=== PATIENT | female | born 1975 | race Caucasian/White ===

== ENCOUNTER 2018-01-02 16:41 | Emergency (ER) | payer OTHER ==
[~2018-01-02] VITALS: Ht 149.9 cm; Wt 71.2 kg
[2018-01-02 17:45] LABS: APPEARANCE,URINE CLOUDY (CLEAR); BILIRUBIN,URINE NEGATIVE (NEGATIVE); BLOOD, URINE 3+ Ery/uL (NEGATIVE); COLOR,URINE BROWN (YELLOW); KETONES,URINE NEGATIVE (NEGATIVE); LEUKOCYTE ESTERASE ,URINE 2+ (NEGATIVE); NITRITE, URINE NEGATIVE (NEGATIVE); PH,URINE 5.5 (5.0-8.0); PROTEIN,URINE 1+ mg/dl (NEGATIVE); UGLUCOSE NEGATIVE (NEGATIVE); UROBILINOGEN,URINE 0.2 EU/dL (0.2)
--- NOTE | 2018-01-02 17:45 | NUR ---
PATIENT TO ED DT PAIN ON URINATION AND INCREASED FREQUENCY SINCE 0800, BLOOD IN URINE X3 DAYS. PATIENT IS AWAKE ALERT. AFEBRILE. NO NAUSEA NOR VOMITTING.
[2018-01-02 17:54] LABS: BACTERIA,URINE Few /HPF (None Seen); RBC,URINE TOO NUMEROUS TO COUN /HPF (0-2); SQUAMOUS EPITHELIAL CELL,UR Few /HPF (None Seen); WBC,URINE TOO NUMEROUS TO COUN /HPF (0-3)
--- NOTE | 2018-01-02 18:16 | NUR ---
PT. VERBALIZED UNDERSTANDING OF AFTERCARE INSTRUCTIONS.Patient discharged to home in stable condition. Written and verbal after care instructions given. Patient verbalizes understanding of instruction.
[2018-01-02 18:18] VITALS: BP 113/82
== END 2018-01-02 18:19 | disposition home or self-care (01) ==
LOC: ER 16:48
DX: N39.0 Urinary tract infection, site not specified (principal); Z60.2 Problems related to living alone
CPT/HCPCS: 81001; 87077; 87086; 87186; 99284; A4606; Z7610; 81000-TC